=== PATIENT | male | born 1930 | race Caucasian/White ===

== ENCOUNTER 2016-07-01 | Outpatient (CLI) | payer MEDICARE, OTHER | END 2016-07-01 23:59 | disposition short-term general hospital (02) | CPT/HCPCS: A0425; A0429; A0888 ==

== ENCOUNTER 2016-07-05 17:14 | Observation (INO) | payer MEDICARE, OTHER ==
[2016-07-05] MEDS ORDERED: oxyCODONE 5 MG TABLET PO PRN ×2 (20:34)
[2016-07-05] MEDS ORDERED: SODIUM CHLORIDE FLUSH 0.9% 10 ML SYRINGE IVP PRN (20:34)
[2016-07-05] MEDS ORDERED: ACETAMINOPHEN 325 MG TABLET PO PRN (20:34)
[2016-07-06] MEDS: SODIUM CHLORIDE FLUSH 0.9% 10 ML SYRINGE IVP SCH ×2 (05:31→05:33)
[2016-07-06] MEDS: TERAZOSIN 1 MG CAPSULE PO ONE ×2 (06:27→06:43)
[2016-07-06] MEDS: DORZOLAMIDE 2% OPHTH DROPS EACHEYE SCH ×2 (07:23→10:36)
[2016-07-06] MEDS ORDERED: POTASSIUM CHLORIDE 20 MEQ TABLET PO ONE ×2 (08:00→10:00)
[2016-07-06] MEDS ORDERED: VENLAFAXINE ER 75 MG CAPSULE PO SCH (09:00)
[2016-07-06] MEDS ORDERED: TERAZOSIN 1 MG CAPSULE PO SCH (09:00)
[2016-07-06] MEDS ORDERED: CETIRIZINE 10 MG TABLET PO SCH (09:00)
[2016-07-06] MEDS ORDERED: POLYETHYLENE GLYCOL 3350 17 GM PACKET PO SCH (09:00)
[2016-07-06] MEDS ORDERED: GALANTAMINE 4 MG TABLET PO SCH (09:00)
[2016-07-06] MEDS ORDERED: ACYCLOVIR PO SCH (09:00)
[2016-07-06] MEDS: FUROSEMIDE 20 MG TABLET PO SCH ×2 (10:31→10:32)
[2016-07-06] MEDS ORDERED: DORZOLAMIDE/TIMOLOL OPHTH DROPS EACHEYE SCH (11:00)
[2016-07-06] MEDS ORDERED: RIVAROXABAN 15 MG TABLET PO SCH (11:00)
[2016-07-06] MEDS ORDERED: TIMOLOL 0.5% OPHTH DROPS LEFTEYE SCH (11:00)
[2016-07-06] MEDS ORDERED: diltiaZEM CD 240 MG CAPSULE PO SCH (11:00)
[2016-07-06] MEDS ORDERED: TERAZOSIN 5 MG CAPSULE PO SCH (21:00)
[2016-07-06] MEDS ORDERED: MIRTAZAPINE 15 MG TABLET PO SCH (21:00)
[2016-07-06] MEDS ORDERED: LATANOPROST 0.005% OPHTH DROPS EACHEYE SCH (21:00)
== END 2016-07-06 13:45 | disposition home health service (06) ==
DX: I69.393 Ataxia following cerebral infarction (principal); F32.9 Major depressive disorder, single episode, unspecified; I10 Essential (primary) hypertension; I48.2 Chronic atrial fibrillation; G30.9 Alzheimer's disease, unspecified; F02.80 Dementia in other diseases classified elsewhere, unspecified severity, without behavioral disturbance, psychotic disturbance, mood disturbance, and anxiety; H35.30 Unspecified macular degeneration; H02.402 Unspecified ptosis of left eyelid; Z91.81 History of falling; Z79.01 Long term (current) use of anticoagulants; Z87.891 Personal history of nicotine dependence; Z66 Do not resuscitate
CPT/HCPCS: 36415; 80048; 85025; 85610; 97162; 99284; 99285; A9270; G0378; G8978; G8979; G8980

== ENCOUNTER 2016-08-23 12:10 | Outpatient (CLI) | payer MEDICARE, OTHER | END 2016-08-23 12:11 | disposition home or self-care (01) | DX: J44.9 Chronic obstructive pulmonary disease, unspecified (principal); R10.32 Left lower quadrant pain; R05 Cough ==

== ENCOUNTER 2016-08-26 12:22 | Outpatient (CLI) | payer MEDICARE, OTHER | END 2016-08-26 12:23 | disposition critical access hospital (66) | DX: H53.9 Unspecified visual disturbance (principal) | CPT/HCPCS: A0425; A0429 ==

== ENCOUNTER 2016-08-26 12:47 | Observation (INO) | payer MEDICARE, OTHER ==
[2016-08-26] MEDS ORDERED: IOPAMIDOL-300 100 ML VIAL IVP ONE (14:56)
[2016-08-26] MEDS ORDERED: oxyCODONE 5 MG TABLET PO PRN (15:46)
[2016-08-26] MEDS ORDERED: ACETAMINOPHEN 325 MG TABLET PO PRN (15:46)
[2016-08-26] MEDS ORDERED: ONDANSETRON 4 MG/2 ML VIAL IVP PRN (15:46)
[2016-08-26] MEDS ORDERED: SODIUM CHLORIDE FLUSH 0.9% 10 ML SYRINGE IVP PRN (15:46)
[2016-08-26] MEDS ORDERED: MIRTAZAPINE 15 MG TABLET PO SCH ×2 (16:00→21:00)
[2016-08-26] MEDS ORDERED: fentaNYL 25 MCG PATCH TOP SCH (17:30)
[2016-08-26] MEDS ORDERED: ATORVASTATIN 40 MG TABLET PO SCH (21:00)
[2016-08-26] MEDS ORDERED: TERAZOSIN 5 MG CAPSULE PO SCH (21:00)
[2016-08-26] MEDS ORDERED: TIMOLOL 0.5% OPHTH DROPS LEFTEYE SCH (21:00)
[2016-08-26] MEDS ORDERED: LATANOPROST 0.005% OPHTH DROPS LEFTEYE SCH (21:00)
[2016-08-26] MEDS: GALANTAMINE 4 MG TABLET PO SCH (21:27)
[2016-08-26] MEDS: CAPSAICIN 0.025% CREAM 60 GM TUBE TOP SCH (21:30)
[2016-08-26] MEDS: DORZOLAMIDE/TIMOLOL OPHTH DROPS LEFTEYE SCH (21:30)
[2016-08-26] MEDS: SODIUM CHLORIDE FLUSH 0.9% 10 ML SYRINGE IVP SCH (21:31)
[2016-08-26] MEDS ORDERED: TEMAZEPAM 7.5 MG CAPSULE PO PRN (21:44)
[2016-08-27] MEDS: SODIUM CHLORIDE FLUSH 0.9% 10 ML SYRINGE IVP SCH ×2 (06:55→08:35)
[2016-08-27] MEDS ORDERED: PANTOPRAZOLE 40 MG TABLET PO SCH (07:00)
[2016-08-27] MEDS: GALANTAMINE 4 MG TABLET PO SCH (08:24)
[2016-08-27] MEDS: CAPSAICIN 0.025% CREAM 60 GM TUBE TOP SCH (08:25)
[2016-08-27] MEDS: DORZOLAMIDE/TIMOLOL OPHTH DROPS LEFTEYE SCH (08:30)
[2016-08-27] MEDS ORDERED: FUROSEMIDE 20 MG TABLET PO SCH (09:00)
[2016-08-27] MEDS ORDERED: diltiaZEM CD 240 MG CAPSULE PO SCH (09:00)
[2016-08-27] MEDS ORDERED: RIVAROXABAN 15 MG TABLET PO SCH (09:00)
[2016-08-27] MEDS ORDERED: POLYETHYLENE GLYCOL 3350 17 GM PACKET PO SCH (09:00)
[2016-08-27] MEDS ORDERED: ASPIRIN CHEW 81 MG TABLET PO SCH (09:00)
[2016-08-27] MEDS ORDERED: CETIRIZINE 10 MG TABLET PO SCH (09:00)
[2016-08-27] MEDS ORDERED: CHOLECALCIFEROL 1,000 UNIT TABLET PO SCH (09:00)
== END 2016-08-27 10:15 | disposition home or self-care (01) ==
DX: G45.3 Amaurosis fugax (principal); I67.1 Cerebral aneurysm, nonruptured; I48.91 Unspecified atrial fibrillation; I10 Essential (primary) hypertension; G89.29 Other chronic pain; M54.9 Dorsalgia, unspecified; H35.30 Unspecified macular degeneration; H40.9 Unspecified glaucoma; G30.9 Alzheimer's disease, unspecified; F02.80 Dementia in other diseases classified elsewhere, unspecified severity, without behavioral disturbance, psychotic disturbance, mood disturbance, and anxiety; Z86.73 Personal history of transient ischemic attack (TIA), and cerebral infarction without residual deficits; Z79.01 Long term (current) use of anticoagulants; Z79.891 Long term (current) use of opiate analgesic; Z66 Do not resuscitate; Z87.891 Personal history of nicotine dependence
CPT/HCPCS: 36415; 70450; 70496; 70498; 80053; 80061; 81003; 83690; 83721; 85025; 85610; 85651; 86140; 93005; 93010; 93306; 99284; A9270; G0378; Q9967